=== PATIENT | male | born 1950 | race Caucasian/White ===

== ENCOUNTER 2017-05-19 11:27 | Emergency (ER) | payer MEDICARE ==
[2017-05-19 12:36] LABS: HEMOGLOBIN 14.8 gm/dl (14.0-17.5); RED BLOOD COUNT 4.85 M/UL (4.20-5.50); WHITE BLOOD COUNT 8.9 K/UL (4.5-11.0)
[2017-05-19 12:55] LABS: BUN/CREATININE RATIO 13 (0-10)
== END 2017-05-19 12:25 ==
LOC: ER1 11:27
PROVIDERS: Emergency Medicine
DX: I63.9 Cerebral infarction, unspecified (principal); R29.810 Facial weakness
CPT/HCPCS: 36415; 70450; 80053; 82550; 82553; 82962; 83874; 84484; 85025; 85610; 85730; 93005; 99285

== ENCOUNTER → 2021-10-28 | Outpatient (CLI) | payer OTHER ==
[~2021-10-28] MED LIST: AMITRIPTYLINE H50 MG PO; BACLOFEN10 MG PO; COZAAR25 MG PO
[2021-10-28 12:58] LABS: HEMOGLOBIN 13.9 gm/dl (14.0-17.5); RED BLOOD COUNT 4.55 M/UL (4.20-5.50); WHITE BLOOD COUNT 6.6 K/UL (4.5-11.0)
[2021-10-28 13:24] LABS: BUN/CREATININE RATIO 17 (0-10)
== END ==
LOC: OPSV2 12:00
PROVIDERS: Orthopaedic Surgery
DX: Z01.818 Encounter for other preprocedural examination (principal); M24.542 Contracture, left hand
CPT/HCPCS: 71046; 80048; 85025; 93005

== ENCOUNTER → 2021-10-31 | Day surgery (SDC) | payer OTHER ==
[~2021-10-31] VITALS: Ht 180.3 cm; Wt 77.1 kg
== END | disposition left against medical advice (07) ==
LOC: OR 09:48
DX: M24.542 Contracture, left hand (principal); I10 Essential (primary) hypertension; J44.9 Chronic obstructive pulmonary disease, unspecified; F17.200 Nicotine dependence, unspecified, uncomplicated; Z86.73 Personal history of transient ischemic attack (TIA), and cerebral infarction without residual deficits; Z79.899 Other long term (current) drug therapy
CPT/HCPCS: J7120